=== PATIENT | female | born 1985 | race Caucasian/White ===

== ENCOUNTER 2016-11-16 03:40 | Emergency (ER) | payer OTHER ==
[~2016-11-16] VITALS: Ht 154.9 cm; Wt 52.2 kg
--- NOTE | 2016-11-16 03:59 | ED GI/GU/ABDOMINAL COMPLAINT ---
History of Present Illness General Chief Complaint: Nausea, Vomiting, Diarrhea Stated Complaint: +N/V/D X'S FEW HRS Source: patient, family, old records Exam Limitations: no limitations Vital Signs & Intake/Output Vital Signs & Intake/Output Vital Signs Date Time Temp Pulse Resp B/P Pulse O2 O2 Flow FiO2 Ox Delivery Rate 11/16 0722 98.2 79 18 110/59 98 Room Air 11/16 0346 97.6 116 20 98 Room Air Allergies Coded Allergies: No Known Allergies (01/19/16) Triage Note: 30YO FEMALE TO TRIAGE W/CO ABD CRAMPS,N,V,D SINCE 0000. Triage Nurses Notes Reviewed? yes ? N Is pt currently ? No HPI: Patient presents with crampy abdominal pain as well as nausea vomiting and diarrhea. Her symptoms started approximately at midnight. She has crampy abdominal pain which steadily worsens in total she moves her bowels. Patient states that it is all liquid that is coming out. Positive nausea and vomiting. The cramping is diffuse across her stomach. She rates it as 10 out of 10 at its worst. There are no aggravating factors however it does decrease after a bowel movement. There are no fevers but positive chills. Patient denies any dysuria however she states that her urine has had a followed her to a for the past 2 days. (LAURIE GARCÍA,THOMPSON Ruiz) Past History Travel History Traveled to [place] past 21 day No Medical History Any Pertinent Medical History? 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 No (LAURIE GARCÍA,THOMPSON Ruiz) Review of Systems Review of Systems Constitutional: Reports: see HPI, chills. EENTM: Reports: no symptoms. Respiratory: Reports: no symptoms. Cardiovascular: Reports: no symptoms. GI: Reports: see HPI, abdominal pain, diarrhea, nausea, vomiting. Genitourinary: Reports: no symptoms. Musculoskeletal: Reports: no symptoms. Skin: Reports: no symptoms. Neurological/Psychological: Reports: no symptoms. Hematologic/Endocrine: Reports: no symptoms. Immunologic/Allergic: Reports: no symptoms. All Other Systems: Reviewed and Negative (LAURIE GARCÍA,THOMPSON Ruiz) Physical Exam Physical Exam General Appearance: well developed/nourished, alert, awake, anxious, moderate distress Head: atraumatic, normal appearance Eyes: Bilateral: PERRL, EOMI, other (ANICTERIC). Ears, Nose, Throat, Mouth: hearing grossly normal, DRY MUCOUS MEMBRANES Neck: normal inspection, supple, full range of motion Respiratory: normal breath sounds, chest non-tender, no respiratory distress, lungs clear Cardiovascular: regular rate/rhythm, normal peripheral pulses Gastrointestinal: normal bowel sounds, soft, no organomegaly, tenderness (RIGHT UPPER QUADRANT) Back: normal inspection, normal range of motion, NO cva TENDERNESS Extremities: normal range of motion Neurologic/Psych: no motor/sensory deficits, awake, alert, oriented x 3, normal mood/affect Skin: intact, normal color, warm/dry Core Measures ACS in differential dx? No Severe Sepsis Present: No Septic Shock Present: No (LAURIE GARCÍA,THOMPSON Ruiz) Progress Differential Diagnosis: appendicitis, biliary colic, cholecystitis, diverticulitis, ectopic , gastritis, hepatitis, ischemic bowel, inflamm bowel dis, intrauterine , pancreatitis, threatened AB, UTI/pyelo Plan of Care: Orders Procedure Date/time Status URINALYSIS 11/16 355 Complete LIPASE 11/16 355 Complete HUMAN BETA HCG SCREEN 11/16 355 Complete COMPREHENSIVE METABOLIC PANEL 11/16 355 Complete CBC WITHOUT DIFFERENTIAL 11/16 355 Complete AMYLASE 11/16 355 Complete Laboratory Tests 11/16/16 0756: Urine Color YEL, Urine Clarity CLEAR, Urine pH 6.5, Ur Specific Lavina <= 1.005 , Urine Protein TRACE H, Urine Ketones 15 H, Urine Nitrite POS H, Urine Bilirubin NEG, Urine Urobilinogen 0.2, Ur Leukocyte Esterase NEG, Ur Microscopic SEDIMENT EXAMINED, Urine RBC RARE, Urine WBC RARE, Ur Epithelial Cells MOD H, Urine Hemoglobin NEG, Urine Glucose NEG 11/16/16 0400: Anion Gap 20 H, Estimated GFR > 60, BUN/Creatinine Ratio 20.0, Glucose 179 H, Calcium 9.9, Total Bilirubin 0.9, AST 20, ALT 18, Alkaline Phosphatase 54, Total Protein 8.1, Albumin 4.8, Globulin 3.3, Albumin/Globulin Ratio 1.5, Amylase 62, Lipase 102, Total Beta HCG NEGATIVE, CBC w Diff MAN DIFF ORDERED, RBC 5.17, MCV 89.8, MCH 30.1, RDW 14.5, MPV 9.9, Gran % 88.1 H, Lymphocytes % 5.8 L, Monocytes % 4.1, Eosinophils % 2.0, Basophils % 0 L, Absolute Granulocytes 10.1 H, Segmented Neutrophils 87 H, Band Neutrophils 4, Absolute Lymphocytes 0.7 L , Lymphocytes 4 L, Monocytes 3, Absolute Monocytes 0.5, Eosinophils 2, Absolute Eosinophils 0.2, Absolute Basophils 0, Platelet Estimate ADEQUATE, Normochromic RBCs VERIFIED, Ovalocytes FEW, PUBS MCHC 33.6, Fld Total RBCs Counted 100 Diagnostic Imaging: Viewed by Me: CT Scan. Discussed w/RAD: CT Scan. Radiology Impression: PATIENT: ZONIA MENESES PRESENT AGE: 30 PATIENT ACCOUNT NO: [id number] : 83 LOCATION: [facility] ORDERING PHYSICIAN: THOMPSON SULLIVAN MD SERVICE DATE: 11/16/16 EXAM TYPE: CAT - CT ABD & PELVIS W IV CONTRAST EXAMINATION: CT ABDOMEN AND PELVIS WITH CONTRAST CLINICAL INFORMATION: Right upper quadrant pain COMPARISON: None. TECHNIQUE: Multidetector volumetric imaging was performed of the abdomen and pelvis before and after the IV administration of 94 mL of Optiray 320 intravenous contrast. Sagittal and coronal reformatted images were obtained on the technologist's workstation. DLP: 257 mGy-cm. FINDINGS: LUNG BASES: The visualized lung bases are unremarkable. LIVER, GALLBLADDER, AND BILIARY TREE: The liver is normal in size, shape, and attenuation. No focal hepatic lesion or biliary ductal dilatation is present. The gallbladder is unremarkable with no evidence of radiopaque gallstones, gallbladder wall thickening, or obvious pericholecystic inflammatory changes. PANCREAS: Unremarkable. SPLEEN: Unremarkable. ADRENAL GLANDS: Unremarkable. KIDNEYS AND URETERS: The kidneys are normal in size, shape , and attenuation. No hydronephrosis, hydroureter, or calculi seen. No perinephric stranding. BLADDER: Unremarkable. GASTROINTESTINAL TRACT: The stomach and small bowel appear unremarkable. No dilated loops of bowel or evidence of obstruction. The appendix is not visualized. No inflammatory changes are seen in the right lower quadrant to suggest acute appendicitis. No bowel wall thickening or inflammatory changes. No free air or free fluid. ABDOMINAL WALL: No significant hernia is appreciated. LYMPH NODES: Normal. VASCULAR: Retroaortic left renal vein. PELVIC VISCERA: The uterus and adnexa are unremarkable. OSSEOUS STRUCTURES: No acute or suspicious osseous abnormality. IMPRESSION: No acute findings of the abdomen or pelvis. Unremarkable appearance of the gallbladder. DICTATED BY: HARIS MORGAN MD DATE/TIME DICTATED:[facility] [employer] TESTING LABORATORY TECHNICIAN:KATT DATE/TIME TRANSCRIBED:11/16/16454 CONFIDENTIAL, DO NOT COPY WITHOUT APPROPRIATE AUTHORIZATION. <Electronically signed in Other Vendor System> SIGNED BY: HARIS MORGAN MD 11/16/16 0502 Initial ED EKG: none Hand-Off Endorsed To: MARQUEZ GONGORA MD Endorsed Time: 0700 Pending: labs (UA) Comments: Lab work and CAT scan have been reviewed with the patient and questions have been answered. Patient is still attempting to give us a urine sample. Patient is been advised that her blood sugar is elevated. Patient states that she has a very strong family history of diabetes. Patient will follow-up with her primary care physician about her blood sugar. (LAURIE GARCÍA,THOMPSON Ruiz) Comments: 11/16/2016 8:26:01 AM patient signed out to me by Dr. Sullivan. Urinalysis is not convincing for urinary tract infection given the level of epithelial cells and lack of white cells. I feel she requires treatment for a UTI at this time. (MARQUEZ GONGORA MD) Departure Departure Disposition: STILL A PATIENT Condition: Stable Clinical Impression Primary Impression: Gastroenteritis Referrals: NGUYỄN CALI MD (PCP/Family) Departure Forms: Customer Survey General Discharge Information (THOMPSON SULLIVAN MD) Departure Additional Instructions: Follow-up with your primary care physician about your blood sugar this week or as soon as possible. Clear liquid diet and advance as tolerated. Return if symptoms worsen or for any concerns. (FRANSISCA GARCÍA,MARQUEZ Herrera)
[2016-11-16 04:20] LABS: ABSOLUTE BASOPHIL COUNT 0 /CUMM (0.0-0.2); ABSOLUTE EOSINOPHIL COUNT 0.2 /CUMM (0.0-0.7); ABSOLUTE GRANULOCYTE CT 10.1 /CUMM (1.4-6.5); ABSOLUTE LYMPH COUNT 0.7 /CUMM (1.2-3.4); ABSOLUTE MONOCYTE COUNT 0.5 /CUMM (0.10-0.60); BASOPHIL % 0 % (0.0-2.0); GRANULOCYTE % 88.1 % (42.2-75.2); HEMATOCRIT 46.4 % (37-47); MEAN CORPUSCULAR HGB 30.1 PG (27.0-31.0); MEAN CORPUSCULAR HGB CONC 33.6 G/DL (33.0-37.0); MEAN CORPUSCULAR VOLUME 89.8 FL (81.0-99.0); MEAN PLATELET VOLUME 9.9 FL (7.4-10.4); PLATELET COUNT 162 /CUMM (130-400); RBC DISTRIBUTION WIDTH 14.5 % (11.5-14.5); RED BLOOD CELL CT 5.17 /CUMM (4.20-5.40); WHITE BLOOD CELL COUNT 11.4 /CUMM (4.8-10.8)
--- NOTE | 2016-11-16 05:02 | CT SCAN REPORT ---
EXAMINATION: CT ABDOMEN AND PELVIS WITH CONTRAST CLINICAL INFORMATION: Right upper quadrant pain COMPARISON: None. TECHNIQUE: Multidetector volumetric imaging was performed of the abdomen and pelvis before and after the IV administration of 94 mL of Optiray 320 intravenous contrast. Sagittal and coronal reformatted images were obtained on the technologist's workstation. DLP: 257 mGy-cm. FINDINGS: LUNG BASES: The visualized lung bases are unremarkable. LIVER, GALLBLADDER, AND BILIARY TREE: The liver is normal in size, shape, and attenuation. No focal hepatic lesion or biliary ductal dilatation is present. The gallbladder is unremarkable with no evidence of radiopaque gallstones, gallbladder wall thickening, or obvious pericholecystic inflammatory changes. PANCREAS: Unremarkable. SPLEEN: Unremarkable. ADRENAL GLANDS: Unremarkable. KIDNEYS AND URETERS: The kidneys are normal in size, shape, and attenuation. No hydronephrosis, hydroureter, or calculi seen. No perinephric stranding. BLADDER: Unremarkable. GASTROINTESTINAL TRACT: The stomach and small bowel appear unremarkable. No dilated loops of bowel or evidence of obstruction. The appendix is not visualized. No inflammatory changes are seen in the right lower quadrant to suggest acute appendicitis. No bowel wall thickening or inflammatory changes. No free air or free fluid. ABDOMINAL WALL: No significant hernia is appreciated. LYMPH NODES: Normal. VASCULAR: Retroaortic left renal vein. PELVIC VISCERA: The uterus and adnexa are unremarkable. OSSEOUS STRUCTURES: No acute or suspicious osseous abnormality. IMPRESSION: No acute findings of the abdomen or pelvis. Unremarkable appearance of the gallbladder.
[2016-11-16] MEDS ORDERED: ZOFRAN ODT4 M1 SL (08:47)
[2016-11-16] MEDS ORDERED: LEVSIN0.125 M1 PO (08:47)
[2016-11-16 08:56] VITALS: BP 104/60
== END 2016-11-16 08:54 ==
LOC: ERH 03:40
PROVIDERS: Emergency Medicine
DX: K52.9 Noninfective gastroenteritis and colitis, unspecified (principal)
CPT/HCPCS: 74177; 81001; 96361; 96374; 96375; J1885; J2405

== ENCOUNTER 2017-05-22 13:38 | Emergency (ER) | payer OTHER ==
[~2017-05-22] VITALS: Ht 157.5 cm; Wt 59.0 kg
[~2017-05-22 13:38] MED LIST: LEVSIN0.125 M1 PO; ZOFRAN ODT4 M1 SL
--- NOTE | 2017-05-22 15:11 | ED GENERAL ADULT ---
History of Present Illness General Chief Complaint: General Adult Stated Complaint: MULITIPLE COMPLAINTS Source: patient Exam Limitations: no limitations Vital Signs & Intake/Output Vital Signs & Intake/Output Vital Signs Date Time Temp Pulse Resp B/P B/P Pulse O2 O2 Flow FiO2 Mean Ox Delivery Rate 05/22 1724 97.5 77 16 106/61 98 Room Air 05/22 1537 Room Air 05/22 1402 99.2 92 20 128/86 Room Air Allergies Coded Allergies: No Known Allergies (01/19/16) Reconcile Medications Alprazolam 0.25 MG TABLET 1 TAB PO PRN ANXIETY (Reported) Ergocalciferol (Vitamin D2) (Vitamin D2) 50,000 UNIT CAPSULE 1 CAP PO QW SUPPLEMENT (Reported) Escitalopram Oxalate 20 MG TABLET 1 TAB PO DAILY MENTAL HEALTH (Reported) Levonorgestrel-Ethin Estradiol (Maria Luisa-28 Tablet) 0.15 MG-30 MCG TABLET 1 TAB PO DAILY CONTROL (Reported) Levothyroxine Sodium 50 MCG TABLET 1 TAB PO DAILY THYROID (Reported) Nitrofurantoin Macrocrystal (Nitrofurantoin) 100 MG CAPSULE 1 CAP PO BID UTI (Reported) Triage Note: PT TO ED C/O SINUS/HEAD PRESSURE, FATIGUE, RIGHT EYE SWELLING, NECK STIFFNESS X A FEW WEEKS. PT STATES SHE NOTICED A TICK ON HER 3-4 WEEKS AGO, WAS ABLE TO REMOVE TICK. Triage Nurses Notes Reviewed? yes Onset: Abrupt Duration: day(s): Timing: recent history : No Patient currently breastfeeds: No HPI: 05/22/17 6:45 PM 31-year-old female presents to the emergency complains of malaise, headache, and nausea. Patient noticed a tick on her 3-4 weeks ago and removed it. The onset of the symptoms was abrupt, the duration has been several days, the severity significant as his symptoms required her to come to the emergency department for care. Past History Travel History Traveled to [place] past 21 day No Medical History Any Pertinent Medical History? 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 No Review of Systems Review of Systems Constitutional: Reports: no symptoms. EENTM: Reports: no symptoms. Respiratory: Reports: no symptoms. Cardiovascular: Reports: no symptoms. GI: Reports: no symptoms. Genitourinary: Reports: no symptoms. Musculoskeletal: Reports: no symptoms. Skin: Reports: no symptoms. Neurological/Psychological: Reports: headache. Hematologic/Endocrine: Reports: no symptoms. Immunologic/Allergic: Reports: no symptoms. All Other Systems: Reviewed and Negative Physical Exam Physical Exam General Appearance: well developed/nourished, alert, awake, anxious, mild distress Head: atraumatic, normal appearance Eyes: Bilateral: normal appearance, PERRL, EOMI. Ears, Nose, Throat: normal pharynx, normal ENT inspection Neck: normal inspection, supple, full range of motion Respiratory: normal breath sounds, chest non-tender, no respiratory distress Cardiovascular: regular rate/rhythm Peripheral Pulses: 4+ radial (R), 4+ radial (L) Gastrointestinal: soft, non-tender Back: normal inspection, normal range of motion Extremities: normal inspection, no edema Neurologic/Psych: no motor/sensory deficits, awake, alert, oriented x 3 Skin: intact, normal color, warm/dry Core Measures ACS in differential dx? No CVA/TIA Diagnosis: No Severe Sepsis Present: No Septic Shock Present: No Progress Differential Diagnoses I considered the following diagnoses in my evaluation of the patient: [Lyme disease, viral syndrome, meningitis, pneumonia] Plan of Care: Orders Procedure Date/time Status Add-on Test (ER Only) 05/22 1605 Active THYROID STIMULATING HORMONE 05/22 1508 Complete HUMAN BETA HCG SCREEN 05/22 1508 Complete FREE T4 05/22 1508 Complete COMPREHENSIVE METABOLIC PANEL 05/22 1508 Complete ANAPLASMA PHAGOCYTOPHILUM DNA 05/22 1508 Active CBC WITHOUT DIFFERENTIAL 05/22 1500 Complete LYME TITRE 05/22 1408 Active Laboratory Tests 05/22/17 1508: Anion Gap 12, Estimated GFR > 60, BUN/Creatinine Ratio 20.0, Glucose 84, Calcium 9.5, Total Bilirubin 0.8, AST 33, ALT 32, Alkaline Phosphatase 57, Total Protein 7.8, Albumin 4.8, Globulin 3.0, Albumin/Globulin Ratio 1.6, TSH 2.060, Free T4 0.83, Total Beta HCG NEGATIVE, A.phagocytophil DNA PCR Pending 05/22/17 1500: CBC w Diff NO MAN DIFF REQ, RBC 4.69, MCV 92.2, MCH 31.1 H, RDW 12.8, MPV 9.7, Gran % 65.5, Lymphocytes % 20.4 L, Monocytes % 7.2, Eosinophils % 6.5 H, Basophils % 0.4, Absolute Granulocytes 4.3, Absolute Lymphocytes 1.4, Absolute Monocytes 0.5, Absolute Eosinophils 0.4, Absolute Basophils 0, PUBS MCHC 33.8, Lyme Disease Antibody Pending Initial ED EKG: none Departure Departure Disposition: HOME OR SELF CARE Condition: Stable Clinical Impression Primary Impression: Headache Referrals: NGUYỄN CALI MD (PCP/Family) Departure Forms: Customer Survey General Discharge Information Comments Labs unremarkable. Lyme titer and Anaplasma are pending. She was empirically treated with doxycycline. She will follow-up with her doctor this week. Critical Care Note Critical Care Note Critical Care Time: non-applicable
[2017-05-22] MEDS ORDERED: ESCITALOPRAM OX20 MG PO (16:03)
[2017-05-22] MEDS ORDERED: LEVOTHYROXINE50 MCG PO (16:03)
[2017-05-22] MEDS ORDERED: NITROFURANTOIN100 M5 PO (16:04)
[2017-05-22] MEDS ORDERED: PORTIA-28 TABL1 EACH PO (16:04)
[2017-05-22] MEDS ORDERED: ALPRAZOLAM0.25 M1 PO (16:04)
[2017-05-22] MEDS ORDERED: VITAMIN D250000 UNIT PO (16:05)
[2017-05-22 16:17] LABS: ABSOLUTE BASOPHIL COUNT 0 /CUMM (0.0-0.2); ABSOLUTE EOSINOPHIL COUNT 0.4 /CUMM (0.0-0.7); ABSOLUTE GRANULOCYTE CT 4.3 /CUMM (1.4-6.5); ABSOLUTE LYMPH COUNT 1.4 /CUMM (1.2-3.4); ABSOLUTE MONOCYTE COUNT 0.5 /CUMM (0.10-0.60); BASOPHIL % 0.4 % (0.0-2.0); EOSINOPHIL % 6.5 % (0-5); GRANULOCYTE % 65.5 % (42.2-75.2); HEMATOCRIT 43.3 % (37-47); MEAN CORPUSCULAR HGB 31.1 PG (27.0-31.0); MEAN CORPUSCULAR HGB CONC 33.8 G/DL (33.0-37.0); MEAN CORPUSCULAR VOLUME 92.2 FL (81.0-99.0); MEAN PLATELET VOLUME 9.7 FL (7.4-10.4); PLATELET COUNT 190 /CUMM (130-400); RBC DISTRIBUTION WIDTH 12.8 % (11.5-14.5); RED BLOOD CELL CT 4.69 /CUMM (4.20-5.40); WHITE BLOOD CELL COUNT 6.6 /CUMM (4.8-10.8)
[2017-05-22 17:24] VITALS: BP 106/61
== END 2017-05-22 17:57 ==
LOC: ERH 13:38
PROVIDERS: Emergency Medicine
DX: R51 Headache (principal); R53.81 Other malaise; R11.0 Nausea
CPT/HCPCS: 86618; 87798